=== PATIENT | male | born 1990 | race Caucasian/White ===

== ENCOUNTER 2017-02-09 15:17 | Emergency (ER) | payer OTHER ==
--- NOTE | 2017-02-09 15:30 | EDPHY ---
H & P Time Seen by Provider: 02/09/17 15:29 HPI/ROS: CHIEF COMPLAINT: Syncope HISTORY OF PRESENT ILLNESS: This 26-year-old man presents the emergency department after being evaluated for syncope at urgent care. Today he woke up at 8:30 a.m. in the morning and felt a little bit light headed with nausea and both hands or feeling numb. He did eat breakfast but wall in the car driving at 1 o'clock he was noted to feel lightheaded, said "I feel like I am going to faint" and then passed out and vomited and was out for about 10 seconds. His reports that she was with him 6 years ago when he had a fever and flu- like illness and he passed out twice then. Patient has had some diarrhea today. No melena or coffee-ground emesis. No hematemesis. No abdominal pain. No headache or visual symptoms or double vision. Not ataxic. REVIEW OF SYSTEMS: Eye: no change in vision ENT: no sore throat Cardiac: No chest pain Pulmonary: no cough or SOB Abdomen: No abdominal pain Musculoskeletal: no back pain Skin: no rash Neuro: no headache Constitutional: no fever : no urinary symptoms A comprehensive 10 point review of systems is otherwise negative aside from elements mentioned in the history of present illness. PAST MEDICAL HISTORY: Negative Social history: Alcohol last night but nothing today. Sister had a DVT. No family history of premature coronary disease or malignant dysrhythmia or sudden cardiac . No drugs. General Appearance: Alert and conversant, cooperative. Eyes: No scleral icterus. ENT, Mouth: Slightly dry mucous membranes but no tongue laceration or abrasion. Respiratory: Normal respiratory effort, breath sounds equal, lungs are clear to auscultation. Cardiovascular: Regular rate and rhythm. No murmurs. Gastrointestinal: Abdomen is soft and non tender. Neurological: Alert and oriented x3. Normally conversant. Face symmetric, normal movement and sensation in all extremities. Not tremulous. Skin: Warm and dry, no rashes. Musculoskeletal: No peripheral edema and no joint swelling. No calf tenderness. Psychiatric: Not agitated. Emergency Department course/MDM: EKG reviewed by myself and is sinus, while on the monitor he did have some sinus bradycardia into the 30s. During this time he was holding his breath. More likely to be vasovagal. Has a normal neurologic examination now. Plan for IV fluid hydration, labs to include CBC chemistries and D-dimer because of family history of pulmonary embolism. 1605: Discussed with parents and [id number] in the room. Apparently his sister as factor 5 [place] and he was tested and was negative. 1640: Results discussed, Zofran 4 mg IV, stable for discharge. Smoking Status: Never smoked Constitutional: Initial Vital Signs Temperature (C) 36.8 C 02/09/17 15:24 Heart Rate 79 02/09/17 15:24 Respiratory Rate 17 02/09/17 15:24 Blood Pressure 122/58 H 02/09/17 15:24 O2 Sat (%) 96 02/09/17 15:24 O2 Delivery Mode Room Air Allergies/Adverse Reactions: amoxicillin Allergy (Verified 02/09/17 15:23) Home Medications: Medication Instructions Recorded NK [No Known Home Meds] 02/09/17 Medical Decision Making - Diagnostics EKG Interpretation: 12-lead EKG interpreted by me; official reading is in trace master. My interpretation is sinus rhythm, inferior Q-wave in 3 noted, normal intervals. No ischemic changes. Differential Diagnosis: Differential diagnosis considered for syncope including but not limited to vasovagal syncope, arrhythmia, dehydration, and blood loss. - Data Points Laboratory Results: Laboratory Results 02/09/17 15:40 02/09/17 15:40 02/09/17 02/09/17 02/09/17 15:40 15:40 15:40 WBC 7.75 10^3/uL 10^3/uL (3.80-9.50) RBC 5.51 10^6/uL 10^6/uL (4.40-6.38) Hgb 15.6 g/dL g/dL (13.7-17.5) Hct 45.0 % % (40.0-51.0) MCV 81.7 fL fL (81.5-99.8) MCH 28.3 pg pg (27.9-34.1) MCHC 34.7 g/dL g/dL (32.4-36.7) RDW 13.2 % % (11.5-15.2) Plt Count 175 10^3/uL 10^3/uL (150-400) MPV 9.9 fL fL (8.7-11.7) Neut % (Auto) 85.0 % H % (39.3-74.2) Lymph % (Auto) 7.1 % L % (15.0-45.0) [place] % (Auto) 7.0 % % (4.5-13.0) Eos % (Auto) 0.4 % L % (0.6-7.6) Baso % (Auto) 0.1 % L % (0.3-1.7) Nucleat RBC Rel Count 0.0 % % (0.0-0.2) Absolute Neuts (auto) 6.59 10^3/uL H 10^3/uL (1.70-6.50) Absolute Lymphs (auto) 0.55 10^3/uL L 10^3/uL (1.00-3.00) Absolute Monos (auto) 0.54 10^3/uL 10^3/uL (0.30-0.80) Absolute Eos (auto) 0.03 10^3/uL 10^3/uL (0.03-0.40) Absolute Basos (auto) 0.01 10^3/uL L 10^3/uL (0.02-0.10) Absolute Nucleated RBC 0.00 10^3/uL 10^3/uL (0-0.01) Immature Gran % 0.4 % % (0.0-1.1) Immature Gran # 0.03 10^3/uL 10^3/uL (0.00-0.10) D-Dimer < 0.27 ug/mLFEU ug/mLFEU (0.00-0.50) Sodium 141 mEq/L mEq/L (134-144) Potassium 3.9 mEq/L mEq/L (3.5-5.2) Chloride 101 mEq/L mEq/L (97-110) Carbon Dioxide 27 mEq/l mEq/l (22-31) Anion Gap 13 mEq/L mEq/L (8-16) BUN 23 mg/dL mg/dL (7-23) Creatinine 1.0 mg/dL mg/dL (0.7-1.3) Estimated GFR > 60 Glucose 71 mg/dL mg/dL (70-100) Calcium 9.3 mg/dL mg/dL (8.5-10.4) Troponin I < 0.012 ng/mL ng/mL (0-0.034) Medications Given: Discontinued Medications Sodium Chloride (Ns) 1,000 mls @ 0 mls/hr IV ONCE ONE PRN Reason: Wide Open Stop: 02/09/17 15:48 Last Admin: 02/09/17 16:02 Dose: 1,000 mls Sodium Chloride (Ns) 1,000 mls @ 0 mls/hr IV ONCE ONE PRN Reason: Wide Open Stop: 02/09/17 15:48 Last Admin: 02/09/17 16:25 Dose: 1,000 mls Ondansetron HCl (Zofran) 4 mg IVP EDNOW ONE Stop: 02/09/17 16:46 Last Admin: 02/09/17 17:15 Dose: 4 mg Departure - Departure Disposition: Home, Routine, Self-Care Clinical Impression: Syncope Qualifiers: Syncope type: vasovagal syncope Qualified Code(s): R55 - Syncope and collapse Condition: Good Instructions: Syncope (ED) Referrals: NONE *PRIMARY CARE P,. [Primary Care Provider] - As per Instructions Suzette Sheldon MD [[facility] [place]] - As per Instructions
--- NOTE | 2017-02-09 15:35 | CPEKG ---
Heart Rate: 92 RR Interval: 652 P-R Interval: 160 QRSD Interval: 78 QT Interval: 328 QTC Interval: 406 P [place]: 70 QRS [place]: 24 T Wave [place]: -13 EKG Severity - BORDERLINE ECG - EKG Impression: SINUS RHYTHM EKG Impression: INFERIOR Q WAVES, PROBABLY NORMAL VARIATION EKG Impression: BORDERLINE T ABNORMALITIES, INFERIOR LEADS Electronically Signed By: Jovan Toribio 09-Feb-2017 15:54:10
[2017-02-09] MEDS ORDERED: NS 1,000 ML IV ONE ×2 (15:47)
[2017-02-09 15:54] LABS: % IMMATURE GRANULYOCYTES 0.4 % (0.0-1.1); ABSOLUTE IMMATURE GRANULOCYTES 0.03 10^3/uL (0.00-0.10); ADD DIFF? NO; ADD MORPH? NO; ADD SCAN? NO; ATYPICAL LYMPHOCYTE FLAG 0 (0-99); FRAGMENT RBC FLAG 0 (0-99); HEMOGLOBIN 15.6 g/dL (13.7-17.5); LEFT SHIFT FLG 10 (0-99); LIPEMIA HEMOLYSIS FLAG 90 (0-99); MEAN CELL HEMOGLOBIN 28.3 pg (27.9-34.1); MEAN CELL HEMOGLOBIN CONCENTR. 34.7 g/dL (32.4-36.7); MEAN CELL VOLUME 81.7 fL (81.5-99.8); MEAN PLATELET VOLUME 9.9 fL (8.7-11.7); PLATELET CLUMPS FLAG 10 (0-99); PLATELET COUNT 175 10^3/uL (150-400); RED BLOOD CELL COUNT 5.51 10^6/uL (4.40-6.38); RED CELL DISTRIBUTION WIDTH 13.2 % (11.5-15.2)
[2017-02-09 16:12] LABS: ANION GAP 13 mEq/L (8-16); CALCIUM 9.3 mg/dL (8.5-10.4); CARBON DIOXIDE 27 mEq/l (22-31); CHLORIDE 101 mEq/L (97-110); GLOMERULAR FILTRATION RATE > 60; GLUCOSE 71 mg/dL (70-100); POTASSIUM 3.9 mEq/L (3.5-5.2); SODIUM 141 mEq/L (134-144)
[2017-02-09 16:21] LABS: TROPONIN I < 0.012 ng/mL (0-0.034)
[2017-02-09] MEDS ORDERED: ONDANSETRON 4 MG/2 ML VIAL IVP ONE (16:45)
[2017-02-09 17:16] VITALS: BP 114/67; PULSE 74; TEMP 97.5; O2SAT 94
[2017-02-09 17:18] VITALS: RESP 18
== END 2017-02-09 17:18 | disposition home or self-care (01) ==
DX: R55 Syncope and collapse (principal)
CPT/HCPCS: 96374; J2405